=== PATIENT | female | born 1935 | race Caucasian/White ===

== ENCOUNTER 2018-09-23 11:32 | Inpatient (IN) | payer MEDICARE ==
[~2018-09-23] VITALS: Ht 142.2 cm; Wt 85.3 kg
--- OUTSIDE RECORDS SUMMARY | 2018-09-23 11:35 | XMS REPORT | Clinical Summary ---
Author Author [facility] Address Unknown Phone Unavailable Care Team Providers Care Set Up Mechanic Stamping Machines Name Role Phone Puma Sewell MD PCP Unavailable Allergies No Known Allergies Medications End Date Status Medication Sig Dispensed Refills Start Date Active atenolol (TENORMIN) 50 MG Take 50 mg by 0 tablet mouth daily. Active lisinopril Take 20 mg by 0 (PRINIVIL,ZESTRIL) 20 MG mouth daily. tablet Active aspirin 81 MG EC tablet Take 81 mg by 0 mouth daily. Active atorvastatin (LIPITOR) 40 Take 40 mg by 0 MG tablet mouth daily. Active cholecalciferol, vitamin Take 2,000 0 D3, 2,000 unit Tab Units by mouth daily. Active latanoprost (XALATAN) 1 drop 0 0.005 % ophthalmic nightly. solution Active brimonidine-timolol 1 drop 2 0 (COMBIGAN) 0.2-0.5 % (two) times ophthalmic solution daily. Active Problems Problem Noted Date Essential hypertension 06/04/2016 Open-angle glaucoma 06/04/2016 Acute appendicitis, unspecified acute appendicitis type 06/03/2016 Social History Date Tobacco Use Types Packs/Day Years Used Never Smoker Alcohol Use Drinks/Week oz/Week Comments Yes occassionally Sex Assigned at Date Recorded Not on file Industry Job Start Date Occupation Not on file Not on file Not on file Travel End Travel History Travel Start No recent travel history available. Last Filed Vital Signs Not on file Plan of Treatment Not on file Results Not on fileafter 09/22/2017 Insurance Payer Benefit Subscriber ID Type Phone Address Plan / Group [employer] TEX[employer] xxxxxxxxx Maps HMO ALL Contracted Advance Directives For more information, please contact: [facility] [address] [place] [address] Date Inactivated Comments Code Status Date Activated 06/04/2016 4:57 PM Full Code 06/04/2016 2:05 AM This code status was determined by: Patient
[2018-09-23] MEDS ORDERED: SODIUM CHLORIDE 0.9% 1000ML 1,000 ML IV STA (11:36)
[2018-09-23] MEDS ORDERED: ASPIRIN 81 MG CHEW TAB PO ONE (11:45)
[2018-09-23 13:11] LABS: BASOPHILS # (AUTO) 0.1 (0.0-0.1); BASOPHILS % 0.4 % (0.0-1.0); EOSINOPHILS % 0.3 % (0.0-6.0); HEMATOCRIT 44.1 % (34.2-44.1); HEMOGLOBIN 14.5 g/dL (12.0-16.0); LYMPHOCYTES # (AUTO) 1.5 (1.0-3.2); LYMPHOCYTES % 11.1 % (18.0-39.1); MEAN CORPUSCULAR HEMOGLOBIN 28.7 pg (28-32); MEAN CORPUSCULAR HGB CONC 32.9 g/dL (31-35); MEAN CORPUSCULAR VOLUME 87.2 fL (81-99); MONOCYTES % 7.3 % (4.4-11.3); NEUTROPHILS # (AUTO) 10.9 (2.1-6.9); NEUTROPHILS % 80.5 % (38.7-80.0); PLATELET COUNT 360 x10e3/uL (140-360); RED BLOOD COUNT 5.06 x10e6/uL (3.6-5.1); RED CELL DISTRIBUTION WIDTH 13.4 % (11.7-14.4)
[2018-09-23 13:15] LABS: BILIRUBIN,URINE NEGATIVE (NEGATIVE); CLARITY,URINE SL CLOUDY (CLEAR); COLOR,URINE YELLOW (YELLOW); KETONES,URINE 1+ (NEGATIVE); LEUKOCYTE ESTERASE ,URINE NEGATIVE (NEGATIVE); NITRITE,URINE NEGATIVE (NEGATIVE); PROTEIN,URINE DIPSTICK NEGATIVE (NEGATIVE); URINE UROBILINOGEN 0.2 mg/dL (0.2 - 1)
[2018-09-23 13:21] LABS: PROTHROMBIN TIME 14.1 seconds (11.9-14.5)
[2018-09-23 13:27] LABS: BACTERIA,URINE MANY /HPF; RBC,URINE 0-5 /HPF (0-5)
--- NOTE | 2018-09-23 13:41 | Diagnostic Imaging Report ---
EXAMINATION: Head CT HISTORY: Found down, probable fall, head and back pain COMPARISON: None. TECHNIQUE: Multidetector axial images were obtained without contrast from the foramen magnum to the vertex . The images were reconstructed using brain and bone algorithms. Thin section brain images were reformatted into coronal and sagittal planes. Image quality: Motion/streaking artifact limits the evaluation of the skull base and posterior cranial fossa. Dose modulation, iterative reconstruction, and/or weight based adjustment of the mA/kV was utilized to reduce the radiation dose to as low as reasonably achievable. FINDINGS: Parenchyma: 1. Mild periventricular white matter hypodensities, most likely nonspecific chronic microvascular ischemic changes, and additional component of transependymal CSF spread cannot be excluded. 2. No mass or hemorrhage. No CT evidence of acute territorial vascular insult. Extra-axial spaces:No abnormal density. No extra-axial fluid collections Brain volume: Normal for age. Ventricles: Mild ventriculomegaly, that is slightly out of proportion to the size of the cortical sulci, thinning and upward displacement of the corpus callosum, with relative partial effacement of the vertex region sulci. Some degree of normal pressure hydrocephalus cannot be excluded in the appropriate clinical setting. Arteries: No density suggestive of thrombus. Dural sinuses: No abnormal density. Extra-axial spaces: No abnormal density. Foramen magnum: No mass, Chiari malformation, or basilar invagination. Sella: No obvious mass. Paranasal/mastoid sinuses: Imaged portions unremarkable. Skull/Scalp: No lytic or blastic lesions. No fractures. IMPRESSION: 1. No acute posttraumatic intracranial abnormalities, particularly no hemorrhage. 2. Mild chronic microvascular ischemic changes. 3. Disproportionate ventriculomegaly, worrisome for normal pressure hydrocephalus as detailed above. Signed by: Dr. Chhaya Mckinney M.D. on 09/23/2018 1:38 PM
[2018-09-23 13:43] LABS: ALBUMIN 3.4 g/dL (3.5-5.0); ANION GAP 16.5 mmol/L (8-16); CALCIUM 9.7 mg/dL (8.4-10.2); CREATININE, SERUM 0.95 mg/dL (0.57-1.11); POTASSIUM 3.5 mmol/L (3.5-5.1)
--- NOTE | 2018-09-23 13:45 | Diagnostic Imaging Report ---
EXAMINATION: CT of the cervical spine HISTORY: Found down, probable fall, neck and back pain COMPARISON: None available TECHNIQUE: Multidetector helical axial images were obtained without contrast from the foramen magnum to T1. The images were reconstructed using bone and soft tissue algorithms and were viewed in axial, sagittal and coronal planes. Dose modulation, iterative reconstruction, and/or weight based adjustment of the mA/kV was utilized to reduce the radiation dose to as low as reasonably achievable. FINDINGS: Alignment: Age indeterminate likely chronic and degenerative grade 1 anterolisthesis at C7-T1 and T1-T2. Minimal retrolisthesis at C2-C3 and anterolisthesis at C3-C4. Soft tissues: Normal Vertebrae: Normal height and density. No acute fracture, infection or neoplasm. Chronic endplate degenerative changes from C4 to T1. Degenerative changes: C1-C2: Normal C2-C3: Facet arthrosis minimally on the right without stenoses. C3-C4: Facet arthrosis minimally on the left without stenoses C4-C5: Disc osteophyte compresses formation, bilateral uncovertebral and facet arthrosis. Mild foraminal narrowing. C5-C6: Disc osteophyte compresses formation, bilateral uncovertebral and facet arthrosis. Moderate left foraminal stenosis. C6-C7: Disc osteophyte complex formation, bilateral uncovertebral and facet arthrosis. No significant canal or foraminal stenosis. C7-T1: Prominent facet arthrosis mainly on the right side without stenosis. IMPRESSION: 1. No acute cervical spine postraumatic abnormalities. 2. Age indeterminate likely chronic and degenerative spondylolisthesis at C2-C3, C3-C4, C7-T1 and T1-T2 as detailed above. 3. Multilevel chronic degenerative changes as above. Note: Acute postraumatic spinal cord, vascular or ligamentous injuries cannot adequately be assessed by CT. Signed by: Dr. Chhaya Mckinney M.D. on 09/23/2018 1:42 PM
[2018-09-23 13:51] LABS: CREATINE KINASE MB 5.6 ng/mL (0-5.0)
--- NOTE | 2018-09-23 13:51 | Diagnostic Imaging Report ---
EXAMINATION: CT of the lumbar spine HISTORY: Low back pain. Weakness. Alteration of consciousness. Found down, probable fall. COMPARISON: None available TECHNIQUE: Multidetector helical axial images were obtained without contrast from L1 to S1. The images were reconstructed using bone and soft tissue algorithms and were viewed in axial, sagittal, and coronal planes. Dose modulation, iterative reconstruction, and/or weight based adjustment of the mA/kV was utilized to reduce the radiation dose to as low as reasonably achievable. FINDINGS: Alignment: Normal lumbar lordosis. Grade 1 anterolisthesis at L4-L5 and retrolisthesis at L1-L2. Thoracolumbar kyphosis. Vertebral bodies: Mild chronic anterior wedging of the T12 and L1 vertebral bodies, with thoracolumbar kyphosis. Paraspinal muscles: Moderate to severe atrophy of the paraspinal muscles.. Intervertebral disks: L1-L2: Symmetric disc bulge, vacuum phenomena and facet arthrosis. Mild foraminal narrowing.. L2-L3: Symmetric disc bulge, ligamenta flava thickening and facet arthrosis. Minimal canal and left foraminal narrowing.. L3-L4: Minimal symmetric disc bulge and mild facet arthrosis. No stenoses. L4-L5: Mild symmetric disc bulge, ligamenta flava thickening of facet arthrosis. No significant stenosis.. L5-S1: Prominent facet arthrosis without stenosis.. IMPRESSION: 1. No acute lumbar spine fractures. 2. Age indeterminate likely chronic and degenerative retrolisthesis at L1-L2 and anterolisthesis at L4-5. 3. Mild multilevel degenerative changes without significant stenosis. Note is made that acute posttraumatic thecal sac/cauda equina nerve roots, vascular or ligamentous injury cannot adequately be assessed with CT. Signed by: Dr. Chhaya Mckinney M.D. on 09/23/2018 1:48 PM
[2018-09-23] MEDS: SODIUM CHLORIDE 0.9% 1000ML 1,000 ML IV SCH ×2 (14:40→22:45)
--- OUTSIDE RECORDS SUMMARY | 2018-09-23 16:32 | XMS REPORT | Clinical Summary ---
Author Author [facility]LEX [facility] Address Unknown Phone Unavailable Care Team Providers Care Residential Insurance Inspector Name Role Phone Puma Sewell MD PCP [...] Advance Directives For more information, please contact: [facility] [address] [place] [address] Date Inactivated Comments Code Status Date Activated 06/04/2016 4:57 PM Full Code 06/04/2016 2:05 AM This code status was determined by: Patient
--- OUTSIDE RECORDS SUMMARY | 2018-09-23 16:32 | XMS REPORT ---
Author Author [facility] Address Unknown Phone Unavailable Care Team Providers Care Manuscripts Curator Name Role Phone Brijesh WHEAT Unavailable Unavailable Problems This patient has no known problems. Allergies, Adverse Reactions, Alerts This patient has no known allergies or adverse reactions. Medications This patient has no known medications. Results Test Description Test Time Test Comments Text Results Atomic Results Result Comments CT LUMBAR SPINE WO 2018-09-23 13:42:00 [place] [address] [place] [address] Patient Name: WILMER KITCHEN MR #: [id number] : 1935 Age/Sex: 82/F Req #: [id number] Adm Physician: Ordered by: AIDAN WHEAT MD Report #: [id number] Location: ER Room/Bed: Procedure: [id number] CT/CT LUMBAR SPINE WO Exam Date: 09/23/18 Exam Time: 1250 REPORT STATUS: Signed EXAMINATION: CT of the lumbar spine HISTORY: Low back pain. Weakness. Alteration of consciousness. Found down, probable fall. COMPARISON: None available TECHNIQUE: Multidetector helical axial images were obtained without contrast from L1 to S1. The images were reconstructed using bone and soft tissue algorithms and were viewed in axial, sagittal, and coronal planes. Dose modulation, iterative reconstruction, and/or weight based adjustment of the mA/kV was utilized to reduce the radiation dose to as low as reasonably achievable. FINDINGS: Alignment: Normal lumbar lordosis. Grade 1 anterolisthesis at L4-L5 and retrolisthesis at L1-L2. Thoracolumbar kyphosis. Vertebral bodies: Mild chronic anterior wedging of the T12 and L1 vertebral bodies, with thoracolumbar kyphosis. Paraspinal muscles: Moderate to severe atrophy of the paraspinal muscles.. Intervertebral disks: L1-L2: Symmetric disc bulge, vacuum phenomena and facet arthrosis. Mild foraminal narrowing.. L2-L3: Symmetric disc bulge, ligamenta flava thickening and facet arthrosis. Minimal canal and left foraminal narrowing.. L3-L4: Minimal symmetric disc bulge and mild facet arthrosis. No stenoses. L4-L5: Mild symmetric disc bulge, ligamenta flava thickening of facet arthrosis. No significant stenosis.. L5-S1: Prominent facet arthrosis without stenosis.. IMPRESSION: 1. No acute lumbar spine fractures. 2. Age indeterminate likely chronic and degenerative retrolisthesis at L1-L2 and anterolisthesis at L4-5. 3. Mild multilevel degenerative changes without significant stenosis. Note is made that acute posttraumatic thecal sac/cauda equina nerve roots, vascular or ligamentous injury cannot adequately be assessed with CT. Signed by: Dr. Jesika Ruiz M.D. on 09/23/2018 1:48 PM Dictated By: JESIKA RUIZ MD 1348 Transcribed By: DANE on 09/23/18 1348 COPY TO: AIDAN WHEAT MD CT CERVICAL SPINE WO 2018-09-23 13:36:00 [place] [address] Patient Name: WILMER KITCHEN MR #: [id number] : 1935 Age/Sex: 82/F Req #: [id number] Adm Physician: Ordered by: AIDAN WHEAT MD Report #: [id number] Location: ER Room/Bed: Procedure: [id number] CT/CT CERVICAL SPINE WO Exam Date: 09/23/18 Exam Time: 1250 REPORT STATUS: Signed EXAMINATION: CT of the cervical spine HISTORY: Found down, probable fall, neck and back pain COMPARISON: None available TECHNIQUE: Multidetector helical axial images were obtained without contrast from the foramen magnum to T1. The images were reconstructed using bone and soft tissue algorithms and were viewed in axial, sagittal and coronal planes. Dose modulation, iterative reconstruction, and/or weight based adjustment of the mA/kV was utilized to reduce the radiation dose to as low as reasonably achievable. FINDINGS: Alignment: Age indeterminate likely chronic and degenerative grade 1 anterolisthesis at C7-T1 and T1-T2. Minimal retrolisthesis at C2-C3 and anterolisthesis at C3-C4. Soft tissues: Normal Vertebrae: Normal height and density. No acute fracture, infection or neoplasm. Chronic endplate degenerative changes from C4 to T1. Degenerative changes: C1-C2: Normal C2-C3: Facet arthrosis minimally on the right without stenoses. C3-C4: Facet arthrosis minimally on the left without stenoses C4-C5: Disc osteophyte compresses formation, bilateral uncovertebral and facet arthrosis. Mild foraminal narrowing. C5-C6: Disc osteophyte compresses formation, bilateral uncovertebral and facet arthrosis. Moderate left foraminal stenosis. C6- C7: Disc osteophyte complex formation, bilateral uncovertebral and facet arthrosis. No significant canal or foraminal stenosis. C7-T1: Prominent facet arthrosis mainly on the right side without stenosis. IMPRESSION: 1. No acute cervical spine postraumatic abnormalities. 2. Age indeterminate likely chronic and degenerative spondylolisthesis at C2-C3, C3- C4, C7-T1 and T1-T2 as detailed above. 3. Multilevel chronic degenerative changes as above. Note: Acute postraumatic spinal cord, vascular or ligamentous injuries cannot adequately be assessed by CT. Signed by: Dr. Jesika Ruiz M.D. on 09/23/2018 1:42 PM Dictated By: JESIKA RUIZ MD 1342 Transcribed By: DANE on 09/23/18 1342 COPY TO: AIDAN WHEAT MD CT BRAIN WO 2018-09-23 13:33:00 [facility] [address] [place] [address] Patient Name: WILMER KITCHEN MR #: [id number] : 1935 Age/Sex: 82/F Req #: [id number] Adm Physician: Ordered by: AIDAN WHEAT MD Report #: [id number] Location: ER Room/Bed: Procedure: [id number] CT/CT BRAIN WO Exam Date: 09/23/18 Exam Time: 1250 REPORT STATUS: Signed EXAMINATION: Head CT HISTORY: Found down, probable fall, head and back pain COMPARISON: None. TECHNIQUE: Multidetector axial images were obtained without contrast from the foramen magnum to the vertex . The images were reconstructed using brain and bone algorithms. Thin section brain images were reformatted into coronal and sagittal planes. Image quality: Motion/streaking artifact limits the evaluation of the skull base and posterior cranial fossa. Dose modulation, iterative reconstruction, and/or weight based adjustment of the mA/kV was utilized to reduce the radiation dose to as low as reasonably achievable. FINDINGS: Parenchyma: 1. Mild periventricular white matter hypodensities, most likely nonspecific chronic microvascular ischemic changes, and additional component of transependymal CSF spread cannot be excluded. 2. No mass or hemorrhage. No CT evidence of acute territorial vascular insult. Extra-axial spaces:No abnormal density. No extra-axial fluid collections Brain vol ume: Normal for age. Ventricles: Mild ventriculomegaly, that is slightly out of proportion to the size of the cortical sulci, thinning and upward displacement of the corpus callosum, with relative partial effacement of the vertex region sulci. Some degree of normal pressure hydrocephalus cannot be excluded in the appropriate clinical setting. Arteries: No density suggestive of thrombus. Dural sinuses: No abnormal density. Extra-axial spaces: No abnormal density. Foramen magnum: No mass, Chiari malformation, or basilar invagination. Sella: No obvious mass. Paranasal/mastoid sinuses: Imaged portions unremarkable. Skull/Scalp: No lytic or blastic lesions. No fractures. IMPRESSION: 1. No acute posttraumatic intracranial abnormalities, particularly no hemorrhage. 2. Mild chronic microvascular ischemic changes. 3. Disproportionate ventriculomegaly, worrisome for normal pressure hydrocephalus as detailed above. Signed by: Dr. Jesika Ruiz M.D. on 09/23/2018 1:38 PM Dictated By: JESIKA RUIZ MD [id number] Transcribed By: DANE on 09/23/18 1330 COPY TO: AIDAN WHEAT MD
[2018-09-23 19:00] VITALS: BP 140/63
--- NOTE | 2018-09-23 19:00 | NUR ---
PATIENT IS A NEW ADMIT THAT ARRIVED VIA STRETCHER. PATIENT IS AXO 2-3. PATIENT HAS BEEN HELPED INTO THE BED. BED IS IN LOWEST POSITION AND CALL LOWE IS WITHIN REACH. WILL CONTINUE TO MONITOR PATIENT.
[2018-09-23 20:00] VITALS: BP 140/63
--- NOTE | 2018-09-23 20:00 | NUR ---
patient has a stage 2 over the sacrum. a wound care consult has been placed per facility protocol.
--- NOTE | 2018-09-23 20:20 | NUR ---
patient is complaining of pain in the groin area. MD notified. received new order for stat CT scan of pelvis, and PRN tylenol #3 every 4 hours for pain. will continue to monitor patient.
[2018-09-23] MEDS ORDERED: ACETAMINOPHEN/CODEINE 300MG - 30MG TAB PO PRN (20:30)
--- NOTE | 2018-09-23 22:24 | Diagnostic Imaging Report ---
EXAM: CT Pelvis WITHOUT contrast INDICATION: Pain COMPARISON: None. TECHNIQUE: Pelvis was scanned utilizing a multidetector helical scanner without the use of IV contrast. Coronal and sagittal reformations were obtained. IV CONTRAST: None COMPLICATIONS: None RADIATION DOSE: Total DLP: 377 mGy*cm Estimated effective dose: (DLP x 0.015 x size factor) mSv CTDIvol has been reviewed. It is below the limits set by the Radiation Protocol Committee (RPC). Appropriate CT dose reduction techniques were utilized. FINDINGS: Bladder: Unremarkable. Other: Fat-containing ventral wall hernias partially visualized. Colon: Moderate diverticulosis sigmoid colon partially visualized. Appendectomy changes. Bones: Moderate degenerative changes lower lumbar spine. Degenerative changes hips. No acute fracture. IMPRESSION: 1. Fat-containing ventral wall hernias partially visualized. 2. Moderate sigmoid diverticulosis. Areas of wall thickening likely chronic inflammation. Minimal acute diverticulitis possible. Signed by: Dr. Juan Jose Dior MD on 09/23/2018 10:21 PM
[2018-09-24] VITALS (7 sets, daily range): BP systolic 113–160; BP diastolic 56–74
[2018-09-24 05:37] LABS: BASOPHILS # (AUTO) 0.1 (0.0-0.1); BASOPHILS % 0.6 % (0.0-1.0); EOSINOPHILS # (AUTO) 0.1 (0.0-0.4); EOSINOPHILS % 1.3 % (0.0-6.0); HEMATOCRIT 35.1 % (34.2-44.1); HEMOGLOBIN 11.5 g/dL (12.0-16.0); LYMPHOCYTES # (AUTO) 1.6 (1.0-3.2); LYMPHOCYTES % 17.3 % (18.0-39.1); MEAN CORPUSCULAR HEMOGLOBIN 29.1 pg (28-32); MEAN CORPUSCULAR HGB CONC 32.8 g/dL (31-35); MEAN CORPUSCULAR VOLUME 88.9 fL (81-99); MONOCYTES # (AUTO) 0.8 (0.2-0.8); MONOCYTES % 8.3 % (4.4-11.3); NEUTROPHILS # (AUTO) 6.6 (2.1-6.9); NEUTROPHILS % 71.9 % (38.7-80.0); PLATELET COUNT 237 x10e3/uL (140-360); RED BLOOD COUNT 3.95 x10e6/uL (3.6-5.1); RED CELL DISTRIBUTION WIDTH 13.2 % (11.7-14.4)
--- NOTE | 2018-09-24 08:07 | NUR ---
patient up in bed , tolerated breakfast, DR Tsai had rounds , son at bed side, patient not in any distress
[2018-09-24] MEDS ORDERED: SENNOSIDES 8.6 MG TAB PO PRN (08:30)
--- NOTE | 2018-09-24 08:56 | History and Physical ---
PRIMARY CARE PHYSICIAN: Dr. León CHIEF COMPLAINT: Fall and weak legs as well as confusion. HISTORY OF PRESENT ILLNESS: This is an 82-year-old woman with a history of myocardial infarction and mild dementia, now with worsening memory and recurrent falls, found in bathtub. Over a 24-hour period, she was in the bathtub after a fall and unable to get up due to her legs being too weak. All the history has been obtained from her son at bedside. The patient also complains of pelvic pain. She is admitted for further evaluation and management. PAST MEDICAL HISTORY: Hypertension, myocardial infarction status post stents more than 2 years ago, mild dementia, recurrent falls. PAST SURGICAL HISTORY: Coronary stent placement. ALLERGIES: PER ELECTRONIC MEDICAL RECORD. FAMILY/SOCIAL HISTORY: The patient is . No alcohol, illicits or cigarettes. MEDICATIONS: Per electronic medical record. REVIEW OF SYSTEMS: Unobtainable. PHYSICAL EXAMINATION VITAL SIGNS: Have been reviewed. GENERAL: A tired-appearing woman resting in bed. HEENT: Anicteric. CARDIOVASCULAR: Normal S1 and S2. LUNGS: Moderate breath sounds. ABDOMEN: Soft, nontender, nondistended. EXTREMITIES: She has no edema or calf tenderness. NEUROLOGIC: She is awake and alert, but she is confused. She moves all extremities. SKIN: Dry. PSYCHIATRIC: Flat affect. LABS: Reviewed. MEDICATIONS: Reviewed. ASSESSMENT: This is an 82-year-old woman. 1. Syncope. 2. Recurrent falls. 3. Acute kidney injury. 4. Ventriculomegaly. 5. Hyperbilirubinemia. 6. Urinary tract infection. 7. Chronic degenerative disk disease. 8. Arthritis. PLAN 1. Rehydrate the patient. 2. Treat with antibiotics for urinary tract infection. 3. Follow up cultures. 4. Physical therapy consultation. 5. Obtain MRI of the brain to further evaluate ventriculomegaly. The patient may have normal-pressure hydrocephalus in the setting of worsening memory, falls, and urinary incontinence, which the son also notes that she has been having at home. 6. Physical therapy consultation and detention facility placement for rehab needs. 7. CT of the pelvis is negative for any fracture. She does have moderate sigmoid diverticulosis. 8. Sigmoid diverticulosis. Will treat with high-fiber diet. 9. Prophylaxis: Will use SCDs. 10. Disposition: Monitor closely. Follow up labs. I have discussed with son at bedside. Job#: [id number] ALHAJI
--- NOTE | 2018-09-24 13:36 | Diagnostic Imaging Report ---
Examination: MRI BRAIN WITHOUT CONTRAST History: Syncope. Fall. Comparison studies: Head CT performed September 23, 2018. Technique: Sagittal T2; axial DWI, FLAIR, GRE or SWI, T1, Coronal FLAIR. Intravenous contrast: None Findings: Scalp: No abnormal signal. No masses. Bone marrow: Normal in signal intensity. Brain volume: Adequate for age. No volume loss. Ventricles: The ventricular size is out of proportion with respect to cerebral convexity sulci, concerning for a communicating type of hydrocephalus, such as normal pressure hydrocephalus. Extra-axial spaces: No abnormalities. Parenchyma: There are patchy and confluent areas of T2/FLAIR hyperintensity in the periventricular and subcortical white matter, nonspecific. No masses, hemorrhage, acute or chronic vascular insults. Suprasellar and sellar region: No abnormalities. Craniocervical junction: No abnormalities. The foramen magnum is patent. No Chiari malformations. Vessels: Normal flow-voids in the arteries and sinuses. Additional findings:None. IMPRESSION: 1. No acute abnormalities. 2. Unchanged mild chronic microvascular ischemic change. 3. Unchanged findings concerning for a communicating type of hydrocephalus, such as normal pressure hydrocephalus. Signed by: Dr. Evelin Roland M.D. on 09/24/2018 1:33 PM
--- NOTE | 2018-09-24 14:33 | NUR ---
SOCIAL WORK INITIAL ASSESSMENT Bobbin Coil Winder to bedside to discuss plan of care with patient/family. CM/SW role and care transitions discussed. Anticipated discharge plan discussed along with duration of care. CM/SW discussed patients right to make decisions in care. CM/SW work hours given. Patient lives: IN OWN HOUSE BY SELF Admit/Transfer: VIA ED FROM HOME POA/Emergency contact: SON MAGY [phone] AND DAUGHTER IN LAW BETTIE [phone] Current/Previous Home Health: NONE PCP/Follow-up Care: HALEY KIRAN Current/Previous DME: SONIA HOLLIS Other Services: NONE Employment Status: RETIRED Areas of Concerns: FREQUENT FALLS AND FORGETFUL Referral Needs: SNF Education Needs: NONE IMM/RICKS given and signed (if applicable): RICKS Goal for discharge: SNF CM/SW left business card at the bedside with contact information. Name and number was also written on the patients whiteboard. Patient verbalized understanding of discussion. CM will follow-up with ongoing discharge and transition of care needs.
--- NOTE | 2018-09-24 14:35 | NUR ---
SPOKE WITH DAUGHTER IN LAW BETTIE WHO IS VERY CONCERNED ABOUT FREQUENT FALLS AND FORGETFULNESS. PT SIGNED CHOICE FOR [facility] AFTER ORDER WAS GIVEN, CLINICALS FAXED WAITING ON AUTH. PASRR COMPLETED AND FILED IN CHART WITH CHOICE LETTER. RTF COMPLETED AND PUT ON CHART
--- NOTE | 2018-09-24 15:05 | NUR ---
WOUND CARE CONSULTATION - INITIAL EVALUATION Patient admitted from Home to ER for episode of Syncope. S/P Fall at home with Leg Edema and Bruising. HX: Systolic CHF, IVEF 45%, HTN, PAF, Valvlular Heart Disease, Diverticulitis, UTI, Syncope, Cholecystectomy, Hysterectomy. WBC7.53 HGB10.3 HCT31.3 NEUT%72.8 GLU91 WC Consulted for Ulcer to Sacral area for evaluation and recommendation. PATIENT VISIT: - Patient in bed and in good spirits. - Verbalizes no wounds. - BLE assessed. No swelling noted. No bruising. - Bilateral Feet, skin pink, warm and intact. - Glynn Score 16 - Visco Mattress in place - Needs assistance to turn and reposition in bed. Unable to do so on her own. - Diapered. - Mid-Gluteal fold presents with moistened/ watery area with linear ulceration at mid gluteal cleft. Tender to touch. Macerated periwound. Mild Odor. - No other wounds identified. IMPRESSION: Mid Gluteal Cleft - Moisture Related Dermatitis with Ulceration. Yeast. RECOMMENDATION: 1. Mid Gluteal Cleft - Moisture Related Dermatitis with Ulceration. -- Cleanse are with Mild Soap and Water then Pat Dry Thoroughly q 12h and PRN Soiling. -- Apply Nystatin Cream q12H and PRN Soiling. 2. Turn and Reposition every 2 hours. 3. Alternating Pressure Air Mattress. 4. Offload Heels with Pillows While in Bed. Thank you for consulting with Wound Care. Addendum: 09/24/18 at 1523 by Alexx Sanchez RN Amended: Links added.
[2018-09-24] MEDS: FAMOTIDINE 20 MG TAB PO SCH (18:53)
--- NOTE | 2018-09-24 19:00 | NUR ---
received report from day nurse. patient is resting comfortably in bed. bed is in lowest position and call benoit is within reach. will continue to monitor patient.
[2018-09-24] MEDS: NYSTATIN 100,000 UNITS/GM CRM 30GM TUBE TOP SCH (20:54)
[2018-09-24] MEDS: LISINOPRIL 20 MG TAB PO SCH (22:15)
[2018-09-24] MEDS: SODIUM CHLORIDE 0.9% 1000ML 1,000 ML IV SCH (22:16)
[2018-09-25] VITALS (7 sets, daily range): BP systolic 138–186; BP diastolic 63–93
--- NOTE | 2018-09-25 05:58 | NUR ---
IM- Progress note O/N no events REVIEW OF SYSTEMS: Unobtainable. PHYSICAL EXAMINATION VITAL SIGNS: Have been reviewed. GENERAL: A tired-appearing woman resting in bed. HEENT: Anicteric. CARDIOVASCULAR: Normal S1 and S2. LUNGS: Moderate breath sounds. ABDOMEN: Soft, nontender, nondistended. EXTREMITIES: She has no edema or calf tenderness. NEUROLOGIC: She is awake and alert, but she is confused. She moves all extremities. SKIN: Dry. PSYCHIATRIC: Flat affect. LABS: Reviewed. MEDICATIONS: Reviewed. ASSESSMENT: This is an 82-year-old woman. 1. Syncope. 2. Recurrent falls. 3. Acute kidney injury. 4. Ventriculomegaly. 5. Hyperbilirubinemia. 6. Urinary tract infection. 7. Chronic degenerative disk disease. 8. Arthritis. PLAN 1. Rehydrate the patient. 2. Treat with antibiotics for urinary tract infection. 3. Follow up cultures. 4. Physical therapy consultation. 5. Obtain MRI of the brain to further evaluate ventriculomegaly. The patient may have normal-pressure hydrocephalus in the setting of worsening memory, falls, and urinary incontinence, which the son also notes that she has been having at home. 6. Physical therapy consultation and detention facility placement for rehab needs. 7. CT of the pelvis is negative for any fracture. She does have moderate sigmoid diverticulosis. 8. Sigmoid diverticulosis. Will treat with high-fiber diet. 9. Prophylaxis: Will use SCDs. 10. Disposition: Monitor closely. Follow up labs. I have discussed with son at bedside. 09/25 neuro consult for possible NPH; diagnostic LP? GNR UTI; check BMP. HTN- use BB.
--- NOTE | 2018-09-25 06:11 | NUR ---
notified of routine consultation. states she will be in to see the patient later in the day.
--- NOTE | 2018-09-25 06:27 | NUR ---
notified of patients elevated blood pressure this morning. states he will review patients home meds.
--- NOTE | 2018-09-25 06:50 | NUR ---
Walking rounds done. Patient is awake and alertx3 without any complaints voiced. POC discussed. Patient instructed to call for assistance as needed and verbalized understanding. bed in lowest position, locked, and call benoit within reach.
[2018-09-25] MEDS: METOPROLOL TARTRATE 25 MG TAB PO SCH ×2 (06:52→17:27)
--- NOTE | 2018-09-25 06:53 | NUR ---
has started patient on a new blood pressure medication to help control her elevated blood pressures.
--- NOTE | 2018-09-25 07:02 | NUR ---
report given to day nurse. patient is resting comfortably in bed. bed is in lowest position and call benoit is within reach
[2018-09-25 07:13] LABS: ANION GAP 11.5 mmol/L (8-16); BLOOD UREA NITROGEN 11 mg/dL (7-26); BUN/CREATININE RATIO 15 (6-25); CALCIUM 8.6 mg/dL (8.4-10.2); CARBON DIOXIDE 23 mmol/L (22-29); CHLORIDE 106 mmol/L (98-107); CREATININE, SERUM 0.75 mg/dL (0.57-1.11); EST GLOMERULAR FILTRATION RATE > 60 ML/MIN (60-); GLUCOSE 124 mg/dL (74-118); POTASSIUM 3.5 mmol/L (3.5-5.1); SODIUM 137 mmol/L (136-145)
[2018-09-25] MEDS: FAMOTIDINE 20 MG TAB PO SCH ×2 (08:48→17:27)
[2018-09-25] MEDS: LISINOPRIL 20 MG TAB PO SCH (08:49)
[2018-09-25] MEDS: NYSTATIN 100,000 UNITS/GM CRM 30GM TUBE TOP SCH ×2 (08:49→21:32)
--- NOTE | 2018-09-25 16:00 | NUR ---
Dr. Tsai called to clarify if antibiotics are needed for urine showing Klebsiella Pneumoniae on microbiology. Awaiting call back
--- NOTE | 2018-09-25 16:17 | NUR ---
ALERTED CM DIRECTOR ABOUT [facility] DENIALS FOR SNF REGARDING THIS PT. AND THE DELAY IT CAUSED. [facility] CM KARLIE CONTACTED ABOUT IN NETWORK FACILITIES TO WHICH SHE STATES UNABLE TO PROVIDE A CORRECT LIST THEY DO NOT HAVE ONE EITHER.
[2018-09-25] MEDS: CEFTRIAXONE SOD 1 GM/NS 50 ML 50 ML IV SCH (17:27)
[2018-09-25] MEDS: SODIUM CHLORIDE 0.9% 1000ML 1,000 ML IV SCH (17:27)
--- NOTE | 2018-09-25 17:44 | NUR ---
Dr. Bagley at the bedside making rounds.
--- NOTE | 2018-09-25 22:42 | Consultation ---
DATE OF CONSULTATION: September 25, 2018 NEUROLOGY CONSULT NOTE HISTORY OF PRESENT ILLNESS: Ms. Batista is an 82-year-old right-hand dominant woman with past medical history significant for hypertension, coronary artery disease with prior myocardial infarction, dementia, and recurrent falls, admitted to [facility] on September 23, 2018 after being found down for an unknown period of time in the shower, and smelling of foul urine. Ms. Batista was found to have a urinary tract infection. She was admitted to [facility] under observation status for further treatment of this urinary tract infection. While in the hospital, due to the presence of confusion, the patient underwent multiple neuroimaging studies. An MRI of the brain, as well as a CT of the brain without contrast, revealed ventriculomegaly out of proportion to the degree of cerebral atrophy. The presence of hyperintense signal surrounding the lateral ventricles raised concerns for normal pressure hydrocephalus. Therefore, a neurology consultation was requested. The remainder of the history is obtained from the patient's son, Teodoro Batista. According to Mr. Batista, the patient has had memory impairment for the past 3-5 months. Mr. Batista describes the memory loss as follows: An event which occurred several months to a few years ago, the patient will think occurred within the last few days. Mr. Batista reports this only happens occasionally. He does not endorse any other symptoms of memory loss or cognitive impairment. Ms. Batista has had gait impairment with frequent falls for approximately 1 year. Mr. Batista reports she ?does not pickers material handlers her feet? when walking. Ms. Batista is incontinent of urine at baseline as well. Her son reports urinary incontinence has been present for approximately 1 year. Mr. Batista reports the above symptoms have come on gradually over the past 1 year or less. REVIEW OF SYSTEMS: Unable to obtain secondary to the patient being encephalopathic. PAST MEDICAL HISTORY: Hypertension, coronary artery disease, prior myocardial infarction, dementia, and recurrent falls. PAST SURGICAL HISTORY: Cardiac stent placement. PAST HOSPITALIZATIONS: Surgeries/procedures as listed. FAMILY MEDICAL HISTORY: There is no known family medical history of hypertension, diabetes mellitus, heart disease, strokes, cancer, etc. SOCIAL HISTORY: Ms. Batista is a . She lives alone in a house. Her sons and other family members look in on her frequently. The patient is retired. Ms. Batista and her son do not report current or prior tobacco, alcohol, or recreational drug use. HOME MEDICATIONS: None. HOSPITAL MEDICATIONS: Reviewed. Please see the list of hospital medications available on the electronic medical record. ALLERGIES: NO KNOWN DRUG ALLERGIES. NO KNOWN FOOD ALLERGIES. NO KNOWN ALLERGIES TO LATEX. NO KNOWN ALLERGIES TO IODINE OR OTHER CONTRAST MATERIALS. PHYSICAL EXAMINATION VITAL SIGNS: Height 56 inches, weight 180 pounds, BMI 40.4 kg/m2, blood pressure 168/77 mmHg, pulse 64 beats per minute, respiratory rate 16 breaths per minute, and oxygen saturation 96% on room air. GENERAL: The patient is awake and alert, does not appear distressed. Morbidly obese. HEENT: Normocephalic, atraumatic. Pupils are equal, round, and reactive to light. Moist mucous membranes. NECK: Supple. No appreciable thyromegaly. No appreciable carotid bruits. CARDIOVASCULAR: S1, S2, regular rate and rhythm. No murmurs, rubs, or gallops. RESPIRATORY: Clear to auscultation bilaterally. No wheezes, rhonchi, or rales. EXTREMITIES: The skin is warm and dry. No clubbing, cyanosis, or edema. The posterior tibial and dorsalis pedis pulses are 1+ and symmetric. SKIN: No rashes or lesions. NEUROLOGIC MEMORY/ATTENTION: The patient is awake and alert, oriented to person, place (hospital, city, county, state), time (day of the week only), but not situation. CRANIAL NERVES: Cranial nerve I-not tested. Cranial nerves II, III, IV, and -pupils are equal and round, react briskly to light (from 4 mm to 2 mm). Extraocular movements are intact. No nystagmus. Cranial nerve V-sensation to light touch is intact in the bilateral V1 through V3 distributions. Strength of the temporalis and masseter muscles is within normal limits. Cranial nerve VII-the face is symmetric as are all facial movements. Strength is within normal limits. Cranial nerve VIII-hearing is diminished to finger rub bilaterally. Cranial nerves IX, X-the soft palate elevates equally and symmetrically. Cranial nerve XI-normal strength of the bilateral sternocleidomastoid and trapezius muscles. Cranial nerve XII-the tongue protrudes midline and moves symmetrically from [id number]. STRENGTH: Bulk is normal. Strength is 4+-5/5 in the bilateral deltoids, biceps, triceps, wrist flexors and extensors, finger flexors and extensors, intrinsic hand muscles, hip flexors, knee flexors and extensors, ankle dorsiflexion and plantar flexion, and intrinsic foot muscles. Tone is normal. DTRS: Deep tendon reflexes are 2+ and symmetric at the triceps, biceps, brachioradialis, and patellas. Deep tendon reflexes are absent and symmetric at the Achilles. Plantar responses are flexor bilaterally. SENSATION: Sensation is intact to light touch in both arms and both legs. CEREBELLAR: Unable to assess secondary to the patient being encephalopathic. GAIT: Ms. Batista ambulates with a walker and with moderate assistance from 2 people standing on either side of her. The patient's posture is flexed at the waist, her base is widened, and her stride length is significantly shortened. The patient is noted to pick her feet up off the ground while walking. SPEECH: Spontaneous speech is mildly dysarthric without aphasia. Repetition is intact. INVOLUNTARY MOVEMENTS: None. PRONATOR DRIFT: None. LABORATORY DATA: A recent basic metabolic panel is significant only for an elevated serum glucose of 124. A liver function panel collected on September 23, 2018 revealed an elevated total bilirubin of 1.5, an elevated AST of 35, and a low albumin of 3.4. Creatine kinase 407. CK-MB 5.60. Troponin I 0.039. Lipase 39. The CBC with differential and platelets reveals a white blood cell count of 9.09 with a normal differential. The hemoglobin and hematocrit are 11.5 and 35.1, respectively. The platelet count is 237. PT 14.1, INR 1.00, PTT 23.0. A urinalysis collected on September 23, 2018 revealed slightly cloudy urine with 2+ glucose, 1+ ketones, trace blood, and many urine bacteria. A urine culture collected on September 23, 2018 grew Klebsiella pneumonia. DIAGNOSTIC STUDIES 1. Electrocardiogram on 09/23/2018: Sinus rhythm at 86 beats per minute with fusion complexes. 2. CT of the cervical spine on 09/23/2018: a) No acute cervical spine post-traumatic abnormalities. b) Age indeterminate likely chronic and degenerative spondylolisthesis at C2-C3, C3-C4, C7-T1, and T1-T2 as detailed above. c) Multilevel chronic degenerative changes as above. 3. CT of the brain without contrast on 09/23/2018: On my review, there is no evidence of recent large territorial ischemia, hemorrhage, mass, or mass effect. Cerebral volumes are appropriate for age. There is mild ventriculomegaly, out of proportion to cerebral volume loss. There are findings compatible with mild chronic small vessel ischemic disease. There is questionable transependymal CSF flow. 4. CT of the lumbar spine on 09/23/2018: a) No acute lumbar spine fractures. b) Age indeterminate likely chronic and degenerative retrolisthesis at L1-L2 and anterolisthesis at L4-L5. c) Mild multilevel degenerative changes without significant stenosis. 5. CT of the pelvis on 09/23/2018: a) Fat containing ventral wall hernias, partially visualized. b) Moderate sigmoid diverticulosis. Areas of wall thickening, likely chronic inflammation. Minimal acute diverticulitis possible. 6. MRI of the brain without contrast on 09/24/2018: On my review, there is no evidence of recent or remote large territorial ischemia, hemorrhage, mass, or mass effect. Cerebral volumes are appropriate for age. There is mild ventriculomegaly, once again out of proportion to the degree of cerebral volume loss. There are scattered T2/FLAIR hyperintense foci in the supratentorial deep white matter compatible with mild chronic small vessel ischemic disease. Hyperintense foci surrounding the lateral ventricles is suspicious for transependymal CSF flow. ASSESSMENT AND PLAN: Ms. Batista is an 82-year-old right-hand dominant woman with past medical history as detailed, admitted to [facility] on September 23, 2018, status post fall with unknown downtime and worsening confusion, probably secondary to a urinary tract infection. The patient's neurological examination is significant for disorientation to time and situation and gait impairment as described above. The patient's laboratory data and other diagnostic studies have been reviewed and are documented above. It is possible Ms. Batista has normal pressure hydrocephalus. She does have the constellation of symptoms, traditionally associated with normal pressure hydrocephalus (i.e., confusion, gait impairment, and urinary incontinence). However, in other cases of normal pressure hydrocephalus which I have seen, the symptoms have begun much more abruptly (i.e., over a period of a few weeks). It is also possible Ms. Batista has an underlying dementia, probably of the Alzheimer's type, with worsening confusion due to a urinary tract infection. Urinary incontinence can be seen associated with dementia. However, dementia would not explain the patient's gait impairment. The diagnosis of normal pressure hydrocephalus was discussed in detail with the patient's son, Teodoro Batista. Further evaluation with a high volume lumbar puncture by interventional radiology was discussed as well. However, prior to proceeding with any further evaluation or treatment, Mr. Batista wishes to discuss the patient's symptoms as well as the proposed evaluation and treatment with his brother. There are no recommendations from the neurology service at this time. I will continue to follow the patient while she remains in the hospital. Once Mr. Batista has had the opportunity to discuss the above with his brother, their decision regarding further evaluation and treatment will be relayed either to myself or Ms. Batista's nurse. TIME SPENT: 70 minutes. Job#: [id number] AUDIE BETANCOURT
[2018-09-26] VITALS (9 sets, daily range): BP systolic 138–191; BP diastolic 60–88
[2018-09-26] MEDS: FAMOTIDINE 20 MG TAB PO SCH ×2 (10:05→16:40)
[2018-09-26] MEDS: METOPROLOL TARTRATE 25 MG TAB PO SCH ×2 (10:06→16:40)
[2018-09-26] MEDS: SODIUM CHLORIDE 0.9% 1000ML 1,000 ML IV SCH ×2 (10:07→20:30)
[2018-09-26] MEDS: NYSTATIN 100,000 UNITS/GM CRM 30GM TUBE TOP SCH ×2 (10:07→20:30)
[2018-09-26] MEDS: LISINOPRIL 20 MG TAB PO SCH (10:07)
--- NOTE | 2018-09-26 10:30 | NUR ---
Physical therapy reported that up with mid assistance, 5 steps with mod assistance. Back in bed
--- NOTE | 2018-09-26 15:07 | NUR ---
Service change to Dr.Tran Noel/[facility].
--- NOTE | 2018-09-26 16:32 | NUR ---
Called left message for Dr Roy, Dr Tsai requesting Dr Roy to be attending.
[2018-09-26] MEDS: CEFTRIAXONE SOD 1 GM/NS 50 ML 50 ML IV SCH (16:40)
[2018-09-27] VITALS (7 sets, daily range): BP systolic 137–190; BP diastolic 65–96
--- NOTE | 2018-09-27 05:26 | NUR ---
Sacral wound cleansed and nystatin applied with new allyven.
[2018-09-27] MEDS: FAMOTIDINE 20 MG TAB PO SCH ×2 (08:05→16:30)
[2018-09-27] MEDS: LISINOPRIL 20 MG TAB PO SCH (08:05)
[2018-09-27] MEDS: METOPROLOL TARTRATE 25 MG TAB PO SCH ×2 (08:05→17:23)
--- NOTE | 2018-09-27 10:17 | NUR ---
SEDS , HEEL PROTECTORS, AND AIR MATRESS PLACED ON PT AT THIS TIME
[2018-09-27] MEDS: NYSTATIN 100,000 UNITS/GM CRM 30GM TUBE TOP SCH ×2 (10:18→20:57)
[2018-09-27 11:14] LABS: FOLATE 6.4 ng/mL (7.0-15.4)
--- NOTE | 2018-09-27 11:37 | NUR ---
called report to stephen in med surg 3. pt is going to room 288
--- NOTE | 2018-09-27 12:10 | NUR ---
PATIENT RECEIVED FROM OBS PER WHEEL CHAIR. ALERT AND VERBALLY RESPONSIVE. ASSISTED FROM WHEEL CHAIR TO CHAIR BY 2 STAFFS. EATING LUNCH AT THIS TIME, NO SWALLOWING DIFFICULTY OBSERVED. ALL PERSONAL ITEMS CLOSE TO PATIENT. CALL LIGHT AT REACH, INSTRUCTED TO CALL FOR ASSISTANCE NEEDED WITH RETURN DEMONSTRATION.
[2018-09-27] MEDS: HYDRALAZINE HCL 25 MG TAB PO PRN (15:52)
--- NOTE | 2018-09-27 17:21 | NUR ---
PATIENT NOTED WITH B/P OF 190/96. PRN HYDRALAZINE GIVEN. B/P RECHECKED WITH THE READING OF 126/71. WILL CONTINUE TO MONITOR.
--- NOTE | 2018-09-27 19:20 | NUR ---
RECEIVED PT IN BED AOX2 .DENIES PAIN .PT LOOKS WEAK RESPIRATIONS ARE EVEN AND UNLABORED
--- NOTE | 2018-09-27 19:45 | NUR ---
RECEIVED PT IN BED AOX2 .DENIES PAIN .PT LOOKS WEAK .RESPIRATIONS ARE EVEN AND UNLABORED .CALL LIGHT WITH IN REACH .CONTINUE TO MONITOR
[2018-09-27] MEDS: CEFTRIAXONE SOD 1 GM/NS 50 ML 50 ML IV SCH (20:57)
[2018-09-28] VITALS (8 sets, daily range): BP systolic 114–190; BP diastolic 58–98
[2018-09-28 06:15] LABS: BASOPHILS # (AUTO) 0.1 (0.0-0.1); BASOPHILS % 0.7 % (0.0-1.0); EOSINOPHILS # (AUTO) 0.3 (0.0-0.4); EOSINOPHILS % 3.9 % (0.0-6.0); HEMATOCRIT 34.9 % (34.2-44.1); HEMOGLOBIN 11.8 g/dL (12.0-16.0); LYMPHOCYTES # (AUTO) 1.4 (1.0-3.2); LYMPHOCYTES % 15.6 % (18.0-39.1); MEAN CORPUSCULAR HEMOGLOBIN 28.9 pg (28-32); MEAN CORPUSCULAR HGB CONC 33.8 g/dL (31-35); MEAN CORPUSCULAR VOLUME 85.5 fL (81-99); MONOCYTES # (AUTO) 0.8 (0.2-0.8); MONOCYTES % 9.1 % (4.4-11.3); NEUTROPHILS # (AUTO) 6.2 (2.1-6.9); NEUTROPHILS % 69.9 % (38.7-80.0); PLATELET COUNT 252 x10e3/uL (140-360); RED BLOOD COUNT 4.08 x10e6/uL (3.6-5.1); RED CELL DISTRIBUTION WIDTH 13.2 % (11.7-14.4)
[2018-09-28 06:32] LABS: ANION GAP 12.1 mmol/L (8-16); BLOOD UREA NITROGEN 7 mg/dL (7-26); BUN/CREATININE RATIO 10 (6-25); CALCIUM 8.5 mg/dL (8.4-10.2); CARBON DIOXIDE 22 mmol/L (22-29); CHLORIDE 106 mmol/L (98-107); EST GLOMERULAR FILTRATION RATE > 60 ML/MIN (60-); GLUCOSE 125 mg/dL (74-118); POTASSIUM 3.1 mmol/L (3.5-5.1); SODIUM 137 mmol/L (136-145)
--- NOTE | 2018-09-28 07:27 | NUR ---
NO ACUTE DISTRESS NOTED PT RESTING .CALL LIGHT WIT H REACH .RE PORT GIVEN TO THE ONCOMING NURSE
--- NOTE | 2018-09-28 07:40 | NUR ---
FAMILY SELECTED [facility], FAXED CLINICALS.
[2018-09-28] MEDS: CEFTRIAXONE SOD 1 GM/NS 50 ML 50 ML IV SCH ×2 (08:16→21:28)
[2018-09-28] MEDS: FAMOTIDINE 20 MG TAB PO SCH ×2 (08:16→17:48)
[2018-09-28] MEDS: METOPROLOL TARTRATE 25 MG TAB PO SCH ×2 (08:18→17:49)
[2018-09-28] MEDS: NYSTATIN 100,000 UNITS/GM CRM 30GM TUBE TOP SCH ×2 (08:18→21:29)
[2018-09-28] MEDS: LISINOPRIL 20 MG TAB PO SCH (08:18)
[2018-09-28] MEDS: HYDRALAZINE HCL 25 MG TAB PO PRN (08:30)
--- NOTE | 2018-09-28 19:33 | NUR ---
RECEIVE DPT IN BED AOX2 TALKING WITH THE PHONE .TELE SHOWS SR .STAGE 2 SACRUM .CALL LIGHT WITH IN REACH .CONTINUE TO MONITOR
[2018-09-29] VITALS (7 sets, daily range): BP systolic 121–172; BP diastolic 71–85
--- NOTE | 2018-09-29 06:55 | NUR ---
PT RESTED DURING THE NIGHT .NO ACUTE DISTRESS NOTED .CALL LIGHT WITH IN REACH.
--- NOTE | 2018-09-29 07:04 | NUR ---
RECEIVED PATIENT RESTING IN BED, NO ACUTE DISTRESS NOTED. DENIES PAIN OR DISCOMFORT. CALL LIGHT WITHIN REACH. BED IN THE LOWEST POSITION. BED ALARM ON.
[2018-09-29] MEDS: NYSTATIN 100,000 UNITS/GM CRM 30GM TUBE TOP SCH ×2 (09:16→21:25)
[2018-09-29] MEDS: FAMOTIDINE 20 MG TAB PO SCH ×2 (09:17→16:21)
[2018-09-29] MEDS: LISINOPRIL 20 MG TAB PO SCH (09:18)
[2018-09-29] MEDS: METOPROLOL TARTRATE 25 MG TAB PO SCH ×2 (09:18→16:22)
[2018-09-29] MEDS: CEFTRIAXONE SOD 1 GM/NS 50 ML 50 ML IV SCH ×2 (09:22→21:25)
--- NOTE | 2018-09-29 10:15 | NUR ---
TECH AND NURSE IN TO TURN PATIENT. PATIENT REFUSING TO TURN.
[2018-09-29] MEDS: HYDRALAZINE HCL 25 MG TAB PO PRN (12:52)
--- NOTE | 2018-09-29 13:22 | NUR ---
CALLED DR. WADDELL TO NOTIFY OF K LEVEL OF 3.1 YESTERDAY THAT WAS NOT REPLACED. NO LABS DONE THIS MORNING. PER MD "POTASSIUM WAS REPLACED YESTERDAY, PATIENT WILL GET IT POTASSIUM CHECKED TOMORROW."
--- NOTE | 2018-09-29 19:20 | NUR ---
RECEIVED PATIENT RESTING IN BED, RESPIRATIONS EVEN AND UNLABORED. NO ACUTE DISTRESS NOTED. FAMILY AT BEDSIDE. DENIES PAIN OR DISCOMFORT. CALL LIGHT WITHIN REACH. BED IN THE LOWEST POSITION.
--- NOTE | 2018-09-29 19:25 | NUR ---
REPORT GIVEN TO ONCOMING NURSE, PATIENT IS RESTING IN BED. NO ACUTE DISTRESS NOTED. FAMILY AT BEDSIDE. CALL LIGHT WITHIN REACH. BED IN THE LOWEST POSITION. BED ALARM ON.
[2018-09-30] VITALS: BP 149/77
[2018-09-30 04:00] VITALS: BP 144/78
--- NOTE | 2018-09-30 06:00 | NUR ---
NOTIFIED DR WADDELL ABOUT LOW K 3.1, NEW ORDER FOR AM LAB
--- NOTE | 2018-09-30 07:04 | NUR ---
RECEIVED PATIENT RESTING IN BED. NO ACUTE DISTRESS NOTED. CALL LIGHT WITHIN REACH. BED IN THE LOWEST POSITION. BED ALARM ON.
[2018-09-30 07:09] LABS: ANION GAP 11.2 mmol/L (8-16); BLOOD UREA NITROGEN 10 mg/dL (7-26); BUN/CREATININE RATIO 14 (6-25); CALCIUM 8.7 mg/dL (8.4-10.2); CARBON DIOXIDE 22 mmol/L (22-29); CHLORIDE 105 mmol/L (98-107); CREATININE, SERUM 0.74 mg/dL (0.57-1.11); EST GLOMERULAR FILTRATION RATE > 60 ML/MIN (60-); GLUCOSE 125 mg/dL (74-118); POTASSIUM 3.2 mmol/L (3.5-5.1); SODIUM 135 mmol/L (136-145)
[2018-09-30 07:20] VITALS: BP 192/89
[2018-09-30 07:43] VITALS: BP 192/89
--- NOTE | 2018-09-30 09:05 | NUR ---
POTASSIUM LEVEL OF 3.2 TODAY, DR. WADEDLL ORDERED 40 MEQ KCL PO, WILL ADMINISTER.
[2018-09-30] MEDS ORDERED: POTASSIUM CHLORIDE 10MEQ EA PO ONE (09:15)
[2018-09-30] MEDS: FAMOTIDINE 20 MG TAB PO SCH (09:25)
[2018-09-30] MEDS: METOPROLOL TARTRATE 25 MG TAB PO SCH (09:26)
[2018-09-30] MEDS: LISINOPRIL 20 MG TAB PO SCH (09:26)
[2018-09-30] MEDS: NYSTATIN 100,000 UNITS/GM CRM 30GM TUBE TOP SCH (09:26)
[2018-09-30] MEDS: CEFTRIAXONE SOD 1 GM/NS 50 ML 50 ML IV SCH (09:40)
[2018-09-30 11:37] VITALS: BP 169/76
[2018-09-30] MEDS: HYDRALAZINE HCL 25 MG TAB PO PRN (11:54)
--- NOTE | 2018-09-30 13:25 | NUR ---
[facility]
--- NOTE | 2018-09-30 15:32 | NUR ---
RECEIVED OK FROM TO TRANSFER PATIENT TO [facility]. PATIENT IS IN STABLE CONDITION. IV LINE TO RIGHT WRIST DC'D WITH TIP INTACT, PRESSURE APPLIED TO SITE, NO BLEEDING NOTED. PATIENT TAKEN VIA STRETCHER BY EMS. ALL PERSONAL BELONGINGS AND TRANSFER MAR TAKEN BY PATIENT AND EMS.
== END 2018-09-30 15:31 | DRG 56 ==
LOC: ER 11:32 → ERHOLD 14:13 → IMCU 18:48 → OBSVTOIN 09-24 16:34 → INTOOBSV 09-24 16:34 → IMCU 09-26 07:10 → OBSVTOIN 09-27 09:13 → MED/SURG3 09-27 12:04
PROVIDERS: ADMIT Internal Medicine; ATTEND Internal Medicine
DX: G91.2 (Idiopathic) normal pressure hydrocephalus (principal); G92 Toxic encephalopathy; N17.9 Acute kidney failure, unspecified; I25.2 Old myocardial infarction; Z91.81 History of falling; G93.89 Other specified disorders of brain; E80.6 Other disorders of bilirubin metabolism; M51.36 Other intervertebral disc degeneration, lumbar region; M50.33 Other cervical disc degeneration, cervicothoracic region; R32 Unspecified urinary incontinence; G30.9 Alzheimer's disease, unspecified; F02.80 Dementia in other diseases classified elsewhere, unspecified severity, without behavioral disturbance, psychotic disturbance, mood disturbance, and anxiety; E87.6 Hypokalemia; W01.0XXA Fall on same level from slipping, tripping and stumbling without subsequent striking against object, initial encounter; K57.30 Diverticulosis of large intestine without perforation or abscess without bleeding; I10 Essential (primary) hypertension; R26.89 Other abnormalities of gait and mobility
CPT/HCPCS: 36415; 70450; 70551; 72125; 72131; 72192; 80048; 80053; 81001; 82550; 82553; 82607; 82746; 83036; 83690; 84443; 84484; 85025; 85610; 85730; 86592; 87086; 87186; 93005; 93306; 96360; 96361; 97139; 99284; G0378; J0696; J7030